=== PATIENT | female | born 1960 | race Caucasian/White ===

== ENCOUNTER 2018-02-15 07:07 | Day surgery (SDC) | payer OTHER ==
--- NOTE | 2018-02-01 15:47 | EKG ---
Test Date: 2018-02-01 Test Time: 15:27:29 [employer] Shift Supervisor: LEIA MEASUREMENT RESULTS: Intervals: Rate: 90 CT: 156 QRSD: 90 QT: 386 QTc: 472 Hooper: P: 69 CT: 156 QRS: 31 T: 64 INTERPRETIVE STATEMENTS: Normal sinus rhythm Normal ECG Compared to ECG 12/25/2016 08:28:05 No significant changes Electronically Signed On 02-01-18 15:46:36 CDT by Be Diane
--- NOTE | 2018-02-01 15:55 | RAD REPORT ---
EXAM DESCRIPTION: RAD - Chest Pa And Lat (2 Views) - 02/01/2018 3:24 pm CLINICAL HISTORY: Preop chest, hernia repair COMPARISON: February 2017 TECHNIQUE: PA and lateral views of the chest were obtained. FINDINGS: The lungs are clear of an acute process. Lung markings are similar to comparison. Heart size is normal and central vasculature is within normal limits. No pleural effusion or pneumothorax seen. Thoracic spine degenerative changes are present. No acute bone process. No aortic abnormality. Lap band device seen in the medial left upper quadrant. IMPRESSION: Chronic interstitial lung disease is present similar to the comparison. No acute cardiopulmonary process.
[2018-02-01 17:05] LABS: Absolute Lymphocytes (CBC) 2.6 K/uL (0.7-4.9); Absolute Monocytes 0.6 K/uL (0.1-1.3); Absolute Neutrophil 4.7 K/uL (1.8-8.0); Hematocrit 35.4 % (36.0-45.0); MCV 79.1 fL (80-100); MPV 7.6 fL (7.6-11.3); RBC Red Blood Cell Count 4.48 M/uL (3.86-4.86)
[2018-02-01 17:32] LABS: Potassium 4.2 mEq/L (3.6-5.0)
--- OUTSIDE RECORDS SUMMARY | 2018-02-15 07:09 | XMS REPORT | Clinical Summary ---
:1960 Author Organization [facility] Address [address] [place] [address] Phone Care Team Providers Name Role Phone Unavailable Primary Care Provider Unavailable Allergies No Known Allergies Current Medications Prescription Sig. Disp. Refills Start Date End Date Status citalopram (CELEXA) 40 MG Take 40 mg by mouth Active tablet daily. ibuprofen (ADVIL,MOTRIN) Take 800 mg by Active 800 MG tablet mouth every 6 (six) hours as needed for Pain. omeprazole (PRILOSEC) 40 Take 40 mg by mouth Active MG capsule daily. Active Problems Not on file Social History Tobacco Use Types Packs/Day Years Used Date Current Every Day Smoker 1 3 Smokeless Tobacco: Never Used Tobacco Cessation: Ready to Quit: No; Counseling Given: Yes Alcohol Use Drinks/Week oz/Week Comments Yes occasional Sex Assigned at Date Recorded Not on file Last Filed Vital Signs Not on file Plan of Treatment Not on file Results Not on fileafter 02/14/2017
[2018-02-15] MEDS ORDERED: CEFAZOLIN/SWI 1gm 1 GM/10 ML SYR ONE (08:01)
[2018-02-15] MEDS ORDERED: Ringers Lactate 1,000 ML IV ONE (08:01)
[2018-02-15] MEDS ORDERED: PROPOFOL 200 MG/20 ML VIAL IV ONE (08:02)
[2018-02-15] MEDS ORDERED: MIDAZOLAM HCL 2 MG/2 ML INJ ONE (08:03)
[2018-02-15] MEDS ORDERED: GLYCOPYRROLATE 0.2 MG/ML SYR ONE (08:03)
[2018-02-15] MEDS ORDERED: ROCURONIUM 50 MG/5 ML VIAL IV ONE (08:04)
[2018-02-15] MEDS ORDERED: FENTANYL CITR 100 MCG/2 ML ONE (08:05)
[2018-02-15] MEDS ORDERED: NEOSTIGMINE 1 MG/ML -5 ML SYRINGE ONE (08:06)
[2018-02-15] MEDS ORDERED: ONDANSETRON HCL 40 MG/20 ML VIAL ONE (08:06)
[2018-02-15] MEDS ORDERED: PROMETHAZINE 25 MG/ML VIAL ONE (09:24)
[2018-02-15] MEDS: MEPERIDINE HCL 25 MG/0.5 ML ONE ×2 (09:25→09:30)
--- NOTE | 2018-02-15 09:40 | P.BOP ---
Preoperative diagnosis: tender incarcerated left inguinal hernia Postoperative diagnosis: same Primary procedure: Open repair of tender incarcerated left inguinal hernia with mesh Estimated blood loss: <5cc Findings: incarcerated left inguinal hernia Anesthesia: General Complications: None Implants: medium mesh plug and sheet Transferred to: Recovery Room Condition: Good
[2018-02-15] MEDS ORDERED: CODEINE 30MG/APAP 300MG TAB ONE (11:19)
--- NOTE | 2018-02-15 22:36 | OP ---
Date of Procedure: 02/15/2018 Surgeon: Rashaun Leos MD Preoperative Diagnosis: Tender incarcerated left inguinal hernia. Postoperative Diagnosis: Tender incarcerated left inguinal hernia. Procedures: Open repair of a tender incarcerated left inguinal hernia with mesh. Finding: Incarcerated left inguinal hernia. Anesthesia: General plus local. Implant: Medium mesh plug and sheath. Indications: This is the case of a 57-year-old patient, comes to us with above diagnosis. Fully exp lained the benefits, alternatives, and risks of repair of hernia with mesh which include, but not pizarro ited to infection, bleeding, damage to adjacent structures as complication, recurrence, chronic pain, chronic numbness, OK, and even . She also understands this may not relieve any symptoms. She might need more than one surgical intervention. She understood. Signed a consent. Description Of Procedure: The patient was brought to the operating room and placed in supine positio n. Anesthesia was done without complication. Abdominal area was prepped and draped in a sterile fas hion. Also the inguinal region. An incision was made over the left inguinal region. Incision was c arried down to Day's fascia until found the external oblique aponeurosis that was open in the dire ction of the fibers to connect to the superficial inguinal ring. The ilioinguinal nerve and iliohypo gastric nerve were identified. We protected and examined the external oblique aponeurosis. We notic ed the patient to have a direct hernia present. So, we proceeded to carefully dissect the hernia sac . We proceeded then to be implicated the hernia sac. I put a mesh plug in that area secured in plac e with VersaTack. The mesh sheath on top securing that to the pubic tubercle, shelving edge of ingui nal ligament, transversalis fascia. No bleeding. At that moment, I proceeded to the ingu inal nerve epigastric nerve back into the inguinal canal. Closed the external oblique apo neurosis with 2-0 Prolene making sure the nerves were not included. We then closed Day fascia wit h 3-0 chromic and skin with augusta. Sponge count and instrument counts were correct. The patient t olerated the procedure well. The patient was sent to recovery in stable condition. SUMMARY Diagnosis: Incarcerated left inguinal hernia. Procedures: Open repair of an incarcerated left inguinal hernia with mesh. Disposition: Home. Activity: As tolerated. No heavy lifting. Followup: Follow up in my office in 1 week. Call for appointment at [phone]. Instructions: Keep area dry for 48 hours, then may shower. Medications: See order. DOMENIC/JOVITA Voice ID: [id number] Report ID: [id number]
== END 2018-02-15 12:15 | disposition home or self-care (01) ==
LOC: OR 07:07
PROVIDERS: ATTEND Surgery
PROC: 0YU60JZ Supplement Left Inguinal Region with Synthetic Substitute, Open Approach (ICD-10-PCS; principal; 2018-02-15 08:30)
DX: K40.30 Unilateral inguinal hernia, with obstruction, without gangrene, not specified as recurrent (principal); Z91.040 Latex allergy status; Z91.048 Other nonmedicinal substance allergy status
CPT/HCPCS: 36415; 49507; 71046; 80048; 85025; 93005; J0690; J2175; J2250; J2405; J2550; J2710; J3010

== ENCOUNTER 2018-07-27 13:28 | Emergency (ER) | payer OTHER ==
--- OUTSIDE RECORDS SUMMARY | 2018-07-27 13:34 | XMS REPORT | Clinical Summary ---
:1960 Author Organization [facility] Address [address] [place] [address] Care Team Providers Name Role Phone Zaheer Frye MD Primary Care Provider Allergies No Known Allergies Medications Medication Sig Dispensed Refills Start Date End Date Status citalopram Take 40 mg by 0 07/27/2018 Discontinued (CELEXA) 40 MG mouth daily. tablet ibuprofen Take 800 mg by 0 07/27/2018 Discontinued (ADVIL,MOTRIN) 800 mouth every 6 MG tablet (six) hours as needed for Pain. omeprazole Take 40 mg by 0 07/27/2018 Discontinued (PRILOSEC) 40 MG mouth daily. capsule Active Problems Not on file Social History Tobacco Use Types Packs/Day Years Used Date Current Every Day Smoker 1 3 Smokeless Tobacco: Never Used Tobacco Cessation: Ready to Quit: No; Counseling Given: Yes Alcohol Use Drinks/Week oz/Week Comments Yes occasional Sex Assigned at Date Recorded Not on file Job Start Date Occupation Industry Not on file Not on file Not on file Travel History Travel Start Travel End No recent travel history available. Last Filed Vital Signs Not on file Plan of Treatment Not on file Results Not on fileafter 07/26/2017 Insurance Payer Benefit Plan / Group Subscriber ID Type Phone Address HU[employer]NA - MEDICARE MGD HU[employer] MEDICARE ADV xxxxxxxxx Maps Contracted CARE
[2018-07-27] MEDS ORDERED: LEVALBUTEROL 1.25 MG/3 ML NEB ONE (14:47)
[2018-07-27] MEDS ORDERED: METHYLPREDNISOLONE 125 MG INJ ONE (14:47)
[2018-07-27] MEDS ORDERED: IPRATROPIUM BROM 0.5MG/2.5ML ONE (14:47)
--- NOTE | 2018-07-27 15:58 | RAD REPORT ---
EXAM DESCRIPTION: RAD - Chest Pa And Lat (2 Views) - 07/27/2018 3:25 pm CLINICAL HISTORY: Cough and congestion, fever, shortness of breath COMPARISON: January 2018 TECHNIQUE: PA and lateral views of the chest were obtained. FINDINGS: The lungs are fibrotic as a baseline. The interstitial pattern increased fractionally in t he mid and lower left lung field. Interstitial pattern is otherwise stable. . Left costophrenic angl e blunting is present new from the prior study. Heart size is normal and central vasculature is withi n normal limits. No pneumothorax. No right-sided pleural effusion. No mediastinal or hilar mass or l ymphadenopathy suspected. No acute bony finding noted. No aortic abnormality. IMPRESSION: Small left pleural effusion with minimal interstitial infiltrate superimposed on fibrosi s lower left lung field.
--- NOTE | 2018-07-27 16:19 | ER ---
Nurse's Notes [facility] Name: Georgina Mcneil Age: 58 yrs Sex: Female : 1960 Arrival Date: 07/27/2018 Time: 13:33 Bed 28 Private MD: Bora Robles Diagnosis: Idiopathic interstitial pneumonia;Chronic obstructive pulmonary disease, unspecified Presentation: 07/27 14:02 Presenting complaint: Patient states: fever, Tmax 101.8, congestion, clear productive sv cough, SOB x 3 weeks. OTC meds taken with no relief. Transition of care: patient was not received from another setting of care. Onset of symptoms was July 06, 2018. Care prior to arrival: None. 14:02 Method Of Arrival: Ambulatory sv 14:02 Acuity: ROSI 3 sv 15:31 Risk Assessment: Do you want to hurt yourself or someone else? Patient reports no mg2 desire to harm self or others. Initial Sepsis Screen: Does the patient meet any 2 criteria? No. Patient's initial sepsis screen is negative. Does the patient have a suspected source of infection? No. Patient's initial sepsis screen is negative. Historical: - Allergies: 14:03 Pnemonia vaccine; sv - Home Meds: 15:32 Celexa 40 mg Oral tab 1 tab once daily [Active]; Ibuprofen Oral [Active]; multivitamin mg2 Oral [Active]; Xanax Oral [Active]; - PMHx: 14:03 Anxiety; Degenerative disc disease; Depression; GERD; Hyperlipidemia; Hypothyroidism; sv - PSHx: 14:03 Lap band - 2007; R arm sx; Tubal ligation; Carpal Tunnel Repair; sv - Immunization history:: Flu vaccine is not up to date. - Social history:: Smoking status: Patient/guardian denies using tobacco. - Ebola Screening: : No symptoms or risks identified at this time. - Family history:: not pertinent. - Hospitalizations: : No recent hospitalization is reported. Screenin:03 Abuse screen: Denies threats or abuse. Denies injuries from another. Nutritional iw screening: No deficits noted. Tuberculosis screening: No symptoms or risk factors identified. Fall Risk None identified. Assessment: 15:02 General: Appears uncomfortable, Behavior is calm, cooperative. General: Reports fever iw for feeling ill for. Pain: Complains of pain in head. Neuro: Level of Consciousness is awake, alert, obeys commands, Oriented to person, place, time, situation, Moves all extremities. Full function. Cardiovascular: Capillary refill < 3 seconds in bilateral fingers Patient's skin is warm and dry. Respiratory: Airway is patent Breath sounds with wheezes in left lower lobe, right lower lobe, left posterior lower lobe and right posterior middle lobe. Respiratory: Reports shortness of breath cough that is. Derm: Skin is healthy with good turgor. Musculoskeletal: Range of motion: intact in all extremities. Vital Signs: 14:04 BP 151 / 96; Pulse 84; Resp 20; Temp 100.4(O); Pulse Ox 98% ; Weight 69.85 kg; Height 5 sv ft. 4 in. (162.56 cm); 16:35 BP 150 / 90; Pulse 88; Resp 18; Temp 99.6(O); Pulse Ox 100% on R/A; Pain 0/10; mg2 14:04 Body Mass Index 26.43 (69.85 kg, 162.56 cm) sv ED Course: 13:33 Patient arrived in ED. mr 13:33 Bora Robles MD is Private Physician. mr 14:03 Triage completed. sv 14:05 Arm band placed on. sv 14:18 Derik Ang MD is Attending Physician. rn 14:50 Inserted saline lock: 22 gauge in left antecubital area, using aseptic technique. iw 15:03 Patient has correct armband on for positive identification. iw 15:17 X-ray completed. Patient tolerated procedure well. Patient moved back from radiology. ml 15:19 XRAY Chest Pa And Lat (2 Views) In Process Unspecified. EDMS 15:30 No provider procedures requiring assistance completed. mg2 15:32 Yaakov Elizabeth, TERRIE is Primary Nurse. mg2 16:18 Bora Robles MD is Referral Physician. rn 16:35 IV discontinued, intact, bleeding controlled, No redness/swelling at site. Pressure mg2 dressing applied. Administered Medications: 14:46 Drug: SOLU-Medrol 125 mg Route: IVP; Site: left antecubital; iw 16:21 Follow up: Response: No adverse reaction; Marked relief of symptoms mg2 14:46 Drug: Xopenex (3) 1.25 mg Route: Inhalation; iw 16:22 Follow up: Response: No adverse reaction; Marked relief of symptoms mg2 14:46 Drug: AtroVENT Aerosol 0.5 mg Route: Inhalation; iw 16:22 Follow up: Response: No adverse reaction; Marked relief of symptoms mg2 Outcome: 16:18 Discharge ordered by . rn 16:36 Discharged to home ambulatory, with family. mg2 16:36 Condition: stable 16:36 Discharge instructions given to patient, family, Instructed on discharge instructions, follow up and referral plans. medication usage, Demonstrated understanding of instructions, follow-up care, medications, Prescriptions given X 4. 16:36 Patient left the ED. mg2 Signatures: Dispatcher [employer] Natasha Lou RN RN sv Rivera, Shae mr Demario, Destiny RN TERRIE iw Brian, Derik Dominguez MD MD rn Gardose, Michele, RN RN mg2 Corrections: (The following items were deleted from the chart) 14:04 14:02 Presenting complaint: Patient states: fever, Tmax 101.8, congestion, SOB x 3 sv weeks. OTC meds taken with no relief. sv
--- NOTE | 2018-07-27 16:19 | EDPHYS ---
Physician Documentation [facility] Name: Georgina Mcneil Age: 58 yrs Sex: Female : 1960 Arrival Date: 07/27/2018 Time: 13:33 Bed 28 Private MD: Bora Robles ED Physician Derik Ang HPI: 07/27 15:02 This 58 yrs old Female presents to ER via Ambulatory with complaints of rn Fever, Congestion. 15:02 The patient reports fever, not measured (subjective). Onset: The symptoms/episode rn began/occurred 3 day(s) ago. Modifying factors: there are no obvious modifying factors. Associated signs and symptoms: Pertinent positives: cough. Severity of symptoms: At their worst the symptoms were moderate in the emergency department the symptoms are unchanged. The patient has experienced similar episodes in the past. The patient has not recently seen a physician. Reports fever, congestion, cough, present for 3 weeks but worse over last 3 days, told in past has COPD but she states is seasonal allergies. . Historical: - Allergies: 14:03 Pnemonia vaccine; sv - Home Meds: 15:32 Celexa 40 mg Oral tab 1 tab once daily [Active]; Ibuprofen Oral [Active]; multivitamin mg2 Oral [Active]; Xanax Oral [Active]; - PMHx: 14:03 Anxiety; Degenerative disc disease; Depression; GERD; Hyperlipidemia; Hypothyroidism; sv - PSHx: 14:03 Lap band - 2006; R arm sx; Tubal ligation; Carpal Tunnel Repair; sv - Immunization history:: Flu vaccine is not up to date. - Social history:: Smoking status: Patient/guardian denies using tobacco. - Ebola Screening: : No symptoms or risks identified at this time. - Family history:: not pertinent. - Hospitalizations: : No recent hospitalization is reported. ROS: 15:02 Constitutional: + fever Eyes: Negative for injury, pain, redness, and discharge, pattern fitter: Negative for chest pain, palpitations, and edema, Respiratory: + cough and sob Abdomen/GI: Negative for abdominal pain, nausea, vomiting, diarrhea, and constipation, MS/Extremity: Negative for injury and deformity, Skin: Negative for injury, rash, and discoloration, Neuro: Negative for headache, weakness, numbness, tingling, and seizure. Exam: 15:02 Constitutional: This is a well developed, well nourished patient who is awake, alert, rn and in no acute distress. Head/Face: Normocephalic, atraumatic. Eyes: Pupils equal round and reactive to light, extra-ocular motions intact. Lids and lashes normal. Conjunctiva and sclera are non-icteric and not injected. Cornea within normal limits. Periorbital areas with no swelling, redness, or edema. Cardiovascular: Regular rate and rhythm with a normal S1 and S2. No gallops, murmurs, or rubs. Normal PMI, no JVD. No pulse deficits. Respiratory: + mild tachypnea, no retractions, + diffuse bilateral wheezing, speaking full sentences Abdomen/GI: Soft, non-tender, with normal bowel sounds. No distension or tympany. No guarding or rebound. No evidence of tenderness throughout. Skin: Warm, dry MS/ Extremity: Pulses equal, no cyanosis. Neurovascular intact. Full, normal range of motion. Equal circumference. Neuro: Awake and alert, GCS 15, oriented to person, place, time, and situation. Cranial nerves II-XII grossly intact. Motor strength 5/5 in all extremities. Sensory grossly intact. Cerebellar exam normal. Normal gait. Vital Signs: 14:04 BP 151 / 96; Pulse 84; Resp 20; Temp 100.4(O); Pulse Ox 98% ; Weight 69.85 kg; Height 5 sv ft. 4 in. (162.56 cm); 16:35 BP 150 / 90; Pulse 88; Resp 18; Temp 99.6(O); Pulse Ox 100% on R/A; Pain 0/10; mg2 14:04 Body Mass Index 26.43 (69.85 kg, 162.56 cm) sv MDM: 14:18 Patient medically screened. rn 16:17 Differential diagnosis: viral Infection, bacterial infection, URI, bronchitis, rn pneumonia. Data reviewed: vital signs, nurses notes, lab test result(s), radiologic studies, plain films, and as a result, I will discharge patient. Counseling: I had a detailed discussion with the patient and/or guardian regarding: the historical points, exam findings, and any diagnostic results supporting the discharge/admit diagnosis, lab results, radiology results, the need for outpatient follow up, to return to the emergency department if symptoms worsen or persist or if there are any questions or concerns that arise at home. Response to treatment: the patient's symptoms have markedly improved after treatment, and as a result, I will discharge patient. Special discussion: I discussed with the patient/guardian in detail that at this point there is no indication for admission to the hospital. It is understood, however, that if the symptoms persist or worsen the patient needs to return immediately for re-evaluation. 07/27 14:27 Order name: Flu; Complete Time: 15:53 rn 07/27 14:27 Order name: Strep; Complete Time: 15:53 rn 07/27 14:27 Order name: XRAY Chest Pa And Lat (2 Views); Complete Time: 16:13 rn 07/27 15:49 Order name: Throat Culture EDMS 07/27 14:27 Order name: IV Start; Complete Time: 14:37 rn Administered Medications: 14:46 Drug: SOLU-Medrol 125 mg Route: IVP; Site: left antecubital; iw 16:21 Follow up: Response: No adverse reaction; Marked relief of symptoms mg2 14:46 Drug: Xopenex (3) 1.25 mg Route: Inhalation; iw 16:22 Follow up: Response: No adverse reaction; Marked relief of symptoms mg2 14:46 Drug: AtroVENT Aerosol 0.5 mg Route: Inhalation; iw 16:22 Follow up: Response: No adverse reaction; Marked relief of symptoms mg2 Disposition: 07/27/18 16:18 Discharged to Home. Impression: Idiopathic interstitial pneumonia, Chronic obstructive pulmonary disease, unspecified. - Condition is Stable. - Discharge Instructions: Community-Acquired Pneumonia, Adult, Chronic Obstructive Pulmonary Disease Exacerbation. - Prescriptions for Augmentin 875- 125 mg Oral Tablet - take 1 tablet by ORAL route every 12 hours for 10 days; 20 tablet. Prednisone 20 mg Oral Tablet - take 3 tablet by ORAL route once daily for 5 days; 15 tablet. Zithromax Z- Glen 250 mg Oral Tablet - take 1 tablet by ORAL route as directed for 5 days Day 1 - take two (2) tablets one time. Day 2, 3, 4 , 5 take one (1) tablet once daily.; 6 tablet. Albuterol Sulfate 90 mcg/actuation - inhale 1-2 puff by INHALATION route every 4-6 hours; 1 Inhaler. - Medication Reconciliation Form, Thank You Letter, Antibiotic Education, Prescription Opioid Use form. - Follow up: Bora Robles MD; When: As needed; Reason: Recheck today's complaints, Re-evaluation by your physician. - Problem is new. - Symptoms have improved. Signatures: Dispatcher [employer] EDNatasha Haider RN RN Destiny Solares RN RN iw Nieto, Roman, MD MD rn Gardose, Michele, RN RN mg2 Corrections: (The following items were deleted from the chart) 16:36 16:18 07/27/2018 16:18 Discharged to Home. Impression: Idiopathic interstitial mg2 pneumonia; Chronic obstructive pulmonary disease, unspecified. Condition is Stable. Forms are Medication Reconciliation Form, Thank You Letter, Antibiotic Education, Prescription Opioid Use. Follow up: Bora Robles; When: As needed; Reason: Recheck today's complaints, Re-evaluation by your physician. Problem is new. Symptoms have improved. rn
== END 2018-07-27 16:36 | disposition home or self-care (01) ==
LOC: ER 13:28
DX: J84.111 Idiopathic interstitial pneumonia, not otherwise specified (principal); J44.9 Chronic obstructive pulmonary disease, unspecified
CPT/HCPCS: 71046; 87070; 87081; 87804 ×2; 96374; 99284; J2930

== ENCOUNTER 2019-03-15 10:57 | Observation (INO) | payer OTHER ==
--- OUTSIDE RECORDS SUMMARY | 2019-03-15 11:00 | XMS REPORT | Clinical Summary ---
:1960 Author Organization [facility] Address [address] [place] [address] Care Team Providers Name Role Phone Zaheer [...] Not on file Results Not on fileafter 03/14/2018 Insurance Payer Benefit Plan / Group Subscriber ID Type Phone Address [employer] - MEDICARE MGD [employer] MEDICARE ADV xxxxxxxxx Maps Contracted CARE
[2019-03-15] MEDS ORDERED: ALBUTEROL 2.5 MG/3 ML NEB SOL ONE ×2 (11:23→16:07)
[2019-03-15] MEDS ORDERED: METHYLPREDNISOLONE 125 MG INJ ONE (11:23)
[2019-03-15] MEDS ORDERED: IPRATROPIUM BROM 0.5MG/2.5ML ONE ×2 (11:23→16:07)
--- NOTE | 2019-03-15 11:31 | RAD REPORT ---
EXAM DESCRIPTION: RAD - Chest Single View - 03/15/2019 11:25 am CLINICAL HISTORY: DYSPNEA Chest pain. COMPARISON: Chest Pa And Lat (2 Views) dated 07/27/2018; Chest Pa And Lat (2 Views) dated 02/01/2018; C hest Pa And Lat (2 Views) dated 03/01/2017; Chest Pa And Lat (2 Views) dated 01/26/2017 FINDINGS: Portable technique limits examination quality. The lungs are grossly clear. The heart is normal in size. Trace left pleural effusion. IMPRESSION: Trace left pleural fluid.
[2019-03-15 11:33] LABS: Absolute Lymphocytes (CBC) 3.6 K/uL (0.7-4.9); Basophils % 0.9 % (0-1.3); Eosinophils % 3.9 % (0-4.4); Lymphocytes % 28.3 % (15.3-44.8); Monocytes % 6.2 % (3.3-12.3); RBC Red Blood Cell Count 5.88 M/uL (3.86-4.86)
[2019-03-15 11:41] LABS: Protime INR 1.02
[2019-03-15 11:54] LABS: ALT/SGPT 15 U/L (12-78); AST/SGOT 10 U/L (15-37); Albumin 3.7 g/dL (3.4-5.0); Alkaline Phosphatase 139 U/L (45-117); BUN Blood Urea Nitrogen 20 mg/dL (7-18); Bicarbonate 23 mmol/L (21-32); Bilirubin Direct 0.1 mg/dL (0-0.2); Bilirubin Total 0.5 mg/dL (0.2-1.0); Glucose Level 91 mg/dL (74-106); Magnesium 2.2 mg/dL (1.8-2.4); NT PRO-BNP 60 pg/mL (<125); Potassium 4.1 mmol/L (3.5-5.1); Protein, Total 8.7 g/dL (6.4-8.2); Sodium Level 140 mmol/L (136-145); Troponin (Emerg Dept Use Only) < 0.02 ng/mL (0.0-0.045)
[2019-03-15] MEDS ORDERED: PIPER/TAZO/NS 3.375gm 3.375 GM/100 ML BAG ONE (12:31)
[2019-03-15] MEDS ORDERED: NA CHLORIDE 0.9% 2,000 ML ONE (12:31)
[2019-03-15 12:42] LABS: Platelet Estimate INCR; Urine White Blood Cell Casts OK
[2019-03-15 12:43] LABS: Anisocytosis 2+; Blood Morphology Comment NOTED (NOT SEEN); Elliptocytes 1+; Hypochromasia 1+; Poikilocytosis 1+
[2019-03-15] MEDS ORDERED: NA CHLORIDE 0.9% 500 ML ONE (12:58)
--- NOTE | 2019-03-15 13:00 | ER ---
Nurse's Notes [facility] Name: Georgina Mcneil Age: 58 yrs Sex: Female : 1960 Arrival Date: 03/15/2019 Time: 10:58 Bed 20 Private MD: Diagnosis: Acute bronchitis;Asthma;Dehydration Presentation: 03/15 11:11 Presenting complaint: Patient states: Shortness of breath for the past 3 days, with a aj1 productive cough. She has been taking a Z-Pack, which she has now finished with no relief. Transition of care: patient was not received from another setting of care. Onset of symptoms was 2018. Risk Assessment: Do you want to hurt yourself or someone else? Patient reports no desire to harm self or others. Initial Sepsis Screen: Does the patient meet any 2 criteria? RR > 20 per min. HR > 90 bpm. Yes Does the patient have a suspected source of infection? Yes: Productive cough/pneumonia If YES to both, name of provider notified: Fernando HARPER. Care prior to arrival: None. 11:11 Method Of Arrival: Wheelchair aj1 11:11 Acuity: ROSI 3 aj1 Triage Assessment: 11:16 General: Appears uncomfortable, Behavior is cooperative, anxious, restless. Neuro: aj1 Level of Consciousness is awake, alert, obeys commands. Respiratory: Reports shortness of breath at rest cough that is productive, Airway is patent Respiratory effort is even, Respiratory pattern is regular, symmetrical, tachypnea Onset: The symptoms/episode began/occurred 3 days ago, the patient has moderate shortness of breath. Historical: - Allergies: 11:16 Pnemonia vaccine; aj1 11:16 Latex, Natural Rubber; aj1 - Home Meds: 11:16 Celexa 40 mg Oral tab 1 tab once daily [Active]; Wellbutrin Oral [Active]; amlodipine aj1 oral [Active]; Prilosec Oral [Active]; Tramadol Oral [Active]; ropinirole oral oral [Active]; Albuterol Nebulizer [Active]; Xanax Oral [Active]; - PMHx: 11:16 Anxiety; Degenerative disc disease; Arthritis; Depression; GERD; Hyperlipidemia; aj1 Hypothyroidism; hiatal hernia; - PSHx: 11:16 carpal tunnel; lap band; Tonsillectomy; Tubal ligation; aj1 - Immunization history:: Flu vaccine is up to date. - Social history:: Smoking status: Patient/guardian denies using tobacco. - Ebola Screening: : Patient denies travel to an Ebola-affected area in the 21 days before illness onset. Screenin:47 Abuse screen: Denies threats or abuse. Denies injuries from another. Nutritional ph screening: No deficits noted. Tuberculosis screening: No symptoms or risk factors identified. Fall Risk None identified. Assessment: 11:15 General: Appears distressed, uncomfortable, well groomed, Behavior is cooperative, ph anxious. Pain: Denies pain. Neuro: Level of Consciousness is awake, alert, obeys commands, Oriented to person, place, time, situation, Reports dizziness. Cardiovascular: Reports lightheadedness, shortness of breath, vomiting, Denies chest pain, nausea, palpitations, Capillary refill is sluggish in bilateral fingers Patient's skin is warm and dry. Rhythm is sinus rhythm. Respiratory: Reports shortness of breath at rest cough that is labored breathing Airway is patent Respiratory effort is labored, with retractions, Respiratory pattern is tachypnea Breath sounds with wheezes in mediastinum, right upper lobe and left upper lobe. GI: Reports vomiting, after coughing spells Patient currently denies abdominal pain, nausea. Derm: Skin is intact, Skin is pink, warm \T\ dry. Musculoskeletal: Circulation, motion, and sensation intact. Range of motion: intact in all extremities. 12:15 Reassessment: Patient appears in no apparent distress at this time. Patient and/or ph family updated on plan of care and expected duration. Pain level reassessed. Patient is alert, oriented x 3, equal unlabored respirations, skin warm/dry/pink. Pt reports that SOB has improved, respirations remain tachypneic but wheezing has decreased, denies pain or nausea, VSS, will continue to monitor. 13:30 Reassessment: Patient appears in no apparent distress at this time. Patient and/or ph family updated on plan of care and expected duration. Pain level reassessed. Pt resting quietly w/ eyes closed, equal unlabored respirations, VSS at this tie, will continue to monitor, awaiting room assignment. 14:30 Reassessment: Patient appears in no apparent distress at this time. No changes from ph previously documented assessment. Patient and/or family updated on plan of care and expected duration. Pain level reassessed. 15:30 Reassessment: Patient appears in no apparent distress at this time. Patient and/or ph family updated on plan of care and expected duration. Pain level reassessed. Patient is alert, oriented x 3, equal unlabored respirations, skin warm/dry/pink. Report called to Jazzy FALCON. 15:45 Reassessment: Patient appears in no apparent distress at this time. Patient and/or ph family updated on plan of care and expected duration. Pain level reassessed. Patient is alert, oriented x 3, equal unlabored respirations, skin warm/dry/pink. Pt reports that SOB has returned, respirations noted to be tachypneic and slight wheezes auscultated, SpO2 100% RA, ERP notified, neb tx ordered. Vital Signs: 11:16 BP 155 / 98; Pulse 98; Resp 24; Temp 97.8(O); Pulse Ox 100% on R/A; aj1 11:50 BP 113 / 61; Pulse 87; Resp 22; Pulse Ox 100% on R/A; Pain 0/10; ph 12:13 Weight 83.91 kg; ph 12:30 BP 101 / 50; Pulse 80; Resp 22; Pulse Ox 100% on R/A; ph 13:30 BP 145 / 84; Pulse 88; Resp 20; Temp 97.4; Pulse Ox 99% on R/A; ph 14:30 BP 122 / 78; Pulse 81; Resp 20; Pulse Ox 100% on R/A; ph 15:30 BP 118 / 76; Pulse 82; Resp 22; Temp 97.9; Pulse Ox 100% on R/A; ph ED Course: 10:58 Patient arrived in ED. as 11:00 Fernando Alcantara PA is PHCP. jr8 11:00 Luis Alves MD is Attending Physician. jr8 11:00 Alyssa Fernandes, TERRIE is Primary Nurse. ph 11:12 Triage completed. aj1 11:15 Inserted saline lock: 20 gauge in right antecubital area, using aseptic technique. ph Blood collected. 11:16 Arm band placed on Patient Patient triaged in ER bed 20. aj1 11:25 XRAY Chest (1 view) In Process Unspecified. EDMS 11:30 Initial lab(s) drawn, by me, sent to lab. First set of blood cultures drawn by me, ph Second set of blood cultures drawn by me. 11:38 EKG done, by battery technician. reviewed by Fernando HARPER. sm3 12:59 Carlene Abreu MD is Hospitalizing Provider. jr8 13:46 Patient has correct armband on for positive identification. Placed in gown. Bed in low ph position. Call light in reach. Side rails up X2. phototypesetting equipment monitor on. Pulse ox on. NIBP on. Door closed. Noise minimized. Lights dimmed. Warm blanket given. Pillow given. Verbal reassurance given. Head of bed lowered. 13:47 No provider procedures requiring assistance completed. Patient admitted, IV remains in ph place. Administered Medications: 11:16 Drug: SOLU-Medrol 125 mg Route: IVP; Site: right antecubital; ph 13:37 Follow up: Response: No adverse reaction ph 11:34 Drug: Albuterol - atroVENT (3:1) (2.5 mg - 0.5 mg) 3 ml Route: Nebulizer; ph 13:37 Follow up: Response: No adverse reaction; Wheezing diminished ph 12:25 Drug: NS 0.9% (30 ml/kg) 30 ml/kg {Note: 2,500 mL bolus adminsistered.} Route: IV; ph Rate: bolus; Site: right antecubital; 13:36 Follow up: Response: No adverse reaction; IV Status: Completed infusion; IV Intake: ph 2500ml 12:25 Drug: Zosyn 3.375 grams Route: IVPB; Infused Over: 60 mins; Site: left antecubital; ph 13:36 Follow up: Response: No adverse reaction; IV Status: Completed infusion; IV Intake: ph 100ml 15:55 Drug: Albuterol - atroVENT (3:1) (2.5 mg - 0.5 mg) 3 ml Route: Nebulizer; ph 16:00 Follow up: Response: No adverse reaction ph Intake: 13:36 IV: 100ml; Total: 100ml. ph 13:36 IV: 2500ml; Total: 2600ml. ph Outcome: 12:59 Decision to Hospitalize by Provider. jr8 16:00 Patient left the ED. ph 16:00 Admitted to Tele accompanied by tech, via wheelchair, with oxygen, with chart, Other Pt ph went up w/ neb tx Report called to Jazzy FALCON 16:00 Condition: stable Signatures: Dispatcher [employer] Maria A Koo RN RN aj1 Nely Leos Josh, PA PA jr8 Alyssa Fernandes RN RN ph Justyna Smith 3 Corrections: (The following items were deleted from the chart) 12:28 12:25 NS 0.9% (30 ml/kg) 30 ml/kg IV at bolus in right antecubital ph ph
--- NOTE | 2019-03-15 13:00 | EDPHYS ---
Physician Documentation [facility] Name: Georgina Mcneil Age: 58 yrs Sex: Female : 1960 Arrival Date: 03/15/2019 Time: 10:58 Bed 20 Private MD: ED Physician Luis Alves HPI: 03/15 11:49 This 58 yrs old Female presents to ER via Wheelchair with complaints of jr8 Shortness Of Breath. 11:49 The patient has shortness of breath at rest. Onset: The symptoms/episode began/occurred jr8 gradually, 2 week(s) ago, and became worse and became persistent. Duration: The symptoms are continuous. The patient's shortness of breath is aggravated by talking, walking. Associated signs and symptoms: Pertinent positives: non-productive cough. Severity of symptoms: At their worst the symptoms were moderate in the emergency department the symptoms are unchanged. It is unknown whether or not the patient has had similar symptoms in the past. The patient has been recently seen by a physician:. Patient stated that she was antibiotics about 2 and a half weeks ago for acute respiratory infection. History of asthma and has been having to utilize her inhalers for the past couple of weeks. Now having increased wheezing and dyspnea . Historical: - Allergies: 11:16 Pnemonia vaccine; aj1 11:16 Latex, Natural Rubber; aj1 - Home Meds: 11:16 Celexa 40 mg Oral tab 1 tab once daily [Active]; Wellbutrin Oral [Active]; amlodipine aj1 oral [Active]; Prilosec Oral [Active]; Tramadol Oral [Active]; ropinirole oral oral [Active]; Albuterol Nebulizer [Active]; Xanax Oral [Active]; - PMHx: 11:16 Anxiety; Degenerative disc disease; Arthritis; Depression; GERD; Hyperlipidemia; aj1 Hypothyroidism; hiatal hernia; - PSHx: 11:16 carpal tunnel; lap band; Tonsillectomy; Tubal ligation; aj1 - Immunization history:: Flu vaccine is up to date. - Social history:: Smoking status: Patient/guardian denies using tobacco. - Ebola Screening: : Patient denies travel to an Ebola-affected area in the 21 days before illness onset. ROS: 11:49 Eyes: Negative for injury, pain, redness, and discharge, ENT: Negative for injury, jr8 pain, and discharge, Neck: Negative for injury, pain, and swelling, Cardiovascular: Negative for chest pain, palpitations, and edema, Abdomen/GI: Negative for abdominal pain, nausea, vomiting, diarrhea, and constipation, Back: Negative for injury and pain, MS/Extremity: Negative for injury and deformity, Skin: Negative for injury, rash, and discoloration, Neuro: Negative for headache, weakness, numbness, tingling, and seizure. 11:49 Respiratory: Positive for cough, dyspnea on exertion, shortness of breath, wheezing. Exam: 11:49 Eyes: Pupils equal round and reactive to light, extra-ocular motions intact. Lids and jr8 lashes normal. Conjunctiva and sclera are non-icteric and not injected. Cornea within normal limits. Periorbital areas with no swelling, redness, or edema. ENT: Nares patent. No nasal discharge, no septal abnormalities noted. Tympanic membranes are normal and external auditory canals are clear. Oropharynx with no redness, swelling, or masses, exudates, or evidence of obstruction, uvula midline. Mucous membranes moist. Neck: Trachea midline, no thyromegaly or masses palpated, and no cervical lymphadenopathy. Supple, full range of motion without nuchal rigidity, or vertebral point tenderness. No Meningismus. Cardiovascular: Regular rate and rhythm with a normal S1 and S2. No gallops, murmurs, or rubs. Normal PMI, no JVD. No pulse deficits. Abdomen/GI: Soft, non-tender, with normal bowel sounds. No distension or tympany. No guarding or rebound. No evidence of tenderness throughout. Back: No spinal tenderness. No costovertebral tenderness. Full range of motion. Skin: cool, moist with normal turgor. Normal color with no rashes, no lesions, and no evidence of cellulitis. MS/ Extremity: Pulses equal, no cyanosis. Neurovascular intact. Full, normal range of motion. Neuro: Awake and alert, GCS 15, oriented to person, place, time, and situation. Cranial nerves II-XII grossly intact. Motor strength 5/5 in all extremities. Sensory grossly intact. Cerebellar exam normal. Normal gait. 11:49 Respiratory: mild respiratory distress is noted, Respirations: labored breathing, tachypnea, Breath sounds: wheezing: expiratory that is moderate, is heard diffusely. Vital Signs: 11:16 BP 155 / 98; Pulse 98; Resp 24; Temp 97.8(O); Pulse Ox 100% on R/A; aj1 11:50 BP 113 / 61; Pulse 87; Resp 22; Pulse Ox 100% on R/A; Pain 0/10; ph 12:13 Weight 83.91 kg; ph 12:30 BP 101 / 50; Pulse 80; Resp 22; Pulse Ox 100% on R/A; ph 13:30 BP 145 / 84; Pulse 88; Resp 20; Temp 97.4; Pulse Ox 99% on R/A; ph 14:30 BP 122 / 78; Pulse 81; Resp 20; Pulse Ox 100% on R/A; ph 15:30 BP 118 / 76; Pulse 82; Resp 22; Temp 97.9; Pulse Ox 100% on R/A; ph MDM: 11:05 Patient medically screened. [facility] 12:14 Differential diagnosis: Anxiety Reaction asthma, Bronchitis CHF exacerbation, Chronic jr8 Obstructive Pulmonary Disease Myocardial Infarction pneumonia, pulmonary edema, Pulmonary Embolism Sepsis. The patient's pulmonary embolism risk score was calculated as follows: No Risks (0 Pts). Data reviewed: vital signs, nurses notes, lab test result(s), EKG, radiologic studies, plain films. Data interpreted: Pulse oximetry: on room air is 100 %. Interpretation: normal. Counseling: I had a detailed discussion with the patient and/or guardian regarding: the historical points, exam findings, and any diagnostic results supporting the discharge/admit diagnosis, lab results, radiology results, the need for further work-up and treatment in the hospital. 12:58 Physician consultation: Carlene Abreu MD was called at 12:58, was contacted at 12:58, jr8 regarding admission, to the telemetry unit. consult, patient's condition, and will see patient. 03/15 11:06 Order name: Basic Metabolic Panel [facility] 03/15 11:06 Order name: CBC with Diff 03/15 11:06 Order name: LFT's [facility] 03/15 11:06 Order name: Magnesium; Complete Time: 11:59 [facility] 03/15 11:06 Order name: NT PRO-BNP; Complete Time: 11:59 [facility] 03/15 11:06 Order name: PT-INR; Complete Time: 11:51 jr8 06/20 11:06 Order name: Troponin (emerg Dept Use Only); Complete Time: 11:59 03/15 11:06 Order name: Blood Culture Adult (2) 03/15 11:07 Order name: Basic Metabolic Panel; Complete Time: 11:59 EDMS 03/15 11:07 Order name: CBC with Automated Diff; Complete Time: 12:50 EDMS 03/15 11:07 Order name: Liver (Hepatic) Function; Complete Time: 11:59 EDMS 03/15 11:18 Order name: Procalcitonin; Complete Time: 12:13 hb 03/15 11:18 Order name: Lactate; Complete Time: 11:59 hb 03/15 11:53 Order name: CBC Smear Scan; Complete Time: 12:50 EDMS 03/15 11:06 Order name: XRAY Chest (1 view); Complete Time: 11:37 03/15 11:06 Order name: EKG; Complete Time: 11:08 [facility] 03/15 11:06 Order name: Cardiac monitoring; Complete Time: 11:28 03/15 11:06 Order name: EKG - Nurse/Tech; Complete Time: 11:28 03/15 11:06 Order name: IV Saline Lock; Complete Time: 11:28 03/15 11:06 Order name: Labs collected and sent; Complete Time: 11:28 03/15 11:06 Order name: O2 Per Protocol; Complete Time: 11:28 03/15 11:06 Order name: O2 Sat Monitoring; Complete Time: :28 Administered Medications: 11:16 Drug: SOLU-Medrol 125 mg Route: IVP; Site: right antecubital; ph 13:37 Follow up: Response: No adverse reaction ph 11:34 Drug: Albuterol - atroVENT (3:1) (2.5 mg - 0.5 mg) 3 ml Route: Nebulizer; ph 13:37 Follow up: Response: No adverse reaction; Wheezing diminished ph 12:25 Drug: NS 0.9% (30 ml/kg) 30 ml/kg {Note: 2,500 mL bolus adminsistered.} Route: IV; ph Rate: bolus; Site: right antecubital; 13:36 Follow up: Response: No adverse reaction; IV Status: Completed infusion; IV Intake: ph 2500ml 12:25 Drug: Zosyn 3.375 grams Route: IVPB; Infused Over: 60 mins; Site: left antecubital; ph 13:36 Follow up: Response: No adverse reaction; IV Status: Completed infusion; IV Intake: ph 100ml 15:55 Drug: Albuterol - atroVENT (3:1) (2.5 mg - 0.5 mg) 3 ml Route: Nebulizer; ph 16:00 Follow up: Response: No adverse reaction ph Disposition: 16:16 Co-signature as Attending Physician, Luis Alves MD I agree with the assessment and kdr plan of care. Disposition: 03/15/19 12:59 Hospitalization ordered by Carlene Abreu for Observation. Preliminary diagnosis are Acute bronchitis, Asthma, Dehydration. - Bed requested for Telemetry/MedSurg (observation). - Status is Observation. ph - Condition is Stable. - Problem is new. - Symptoms have improved. UTI on Admission? No Signatures: Dispatcher [employer] EDMS Maria A Page RN RN ajRenée Daugherty RN RN dw Avelino Blake RN RN sg Rittger, Kevin, MD MD [facility] Fernando Alcantara PA PA jr8 Alyssa Fernandes RN RN ph Corrections: (The following items were deleted from the chart) 12:59 12:14 Counseling: I had a detailed discussion with the patient and/or guardian jr8 regarding: the historical points, exam findings, and any diagnostic results supporting the discharge/admit diagnosis, lab results, radiology results, jr8 14:01 12:59 Hospitalization Ordered by Carlene Abreu MD for Observation. Preliminary dw diagnosis is Acute bronchitis; Asthma; Dehydration. Bed requested for Telemetry/MedSurg (observation). Status is Observation. Condition is Stable. Problem is new. Symptoms have improved. UTI on Admission? No. jr8 16:00 14:01 03/15/2019 12:59 Hospitalization Ordered by Carlene Abreu MD for Observation. ph Preliminary diagnosis is Acute bronchitis; Asthma; Dehydration. Bed requested for Telemetry/MedSurg (observation). Status is Observation. Condition is Stable. Problem is new. Symptoms have improved. UTI on Admission? No. dw
--- NOTE | 2019-03-15 15:10 | P.HP ---
Certification for Inpatient Patient admitted to: Observation With expected LOS: <2 Midnights Patient will require the following post-hospital care: None Practitioner: I am a practitioner with admitting privileges, knowledge of patient current condition, hospital course, and medical plan of care. Services: Services provided to patient in accordance with Admission requirements found in Title 42 Section 412.3 of the Code of Federal Regulations Patient History Date of Service: 03/15/19 Primary Care Provider: Dr Medina Reason for admission: SOB History of Present Illness: 58 y/o F with Pmhx of anxiety and depression presenting to the ER with C/o SOB and cough x 3 days. Progressively getting worse. Cough is non productive. Pt gets really SOB after coughing spells and feels dizzy. Denies having Fever, chills, N/V or any other symptoms. Negative for Smoking or alcohol. No sick Contact. Was seen by PCP and given Zpak but did not have any improvement in the symptoms. Allergies adhesive tape Allergy (Verified 02/15/18 08:31) blisters latex tape Allergy (Uncoded 02/15/18 08:31) blisters Pnemonia vaccine Allergy (Uncoded 02/15/18 08:31) Rash - Past Medical/Surgical History Diabetic: No -: Anxiety -: Depression -: Degenerative Disk Disease -: Hyperrlipidemia -: GERD -: Hypothyroidism -: Lap Band -: R arm sx -: Tubal ligation -: Carpel Tunnel Repair - Family History Family History: Reviewed- Non-Contributory - Family History Mother -: Cancer - Social History Smoking Status: Current every day smoker Counseled patient to stop smoking for: more than 10 minutes Smoking therapy provided: Yes Patient receptive to therapy: Yes Alcohol use: No CD- Drugs: No Caffeine use: No Place of Residence: Home Review of Systems 10-point ROS is otherwise unremarkable Physical Examination - Physical Exam General: Alert, In no apparent distress HEENT: Atraumatic, PERRLA, Mucous membr. moist/pink, EOMI, Sclerae nonicteric Neck: Supple, 2+ carotid pulse no bruit, No LAD, Without JVD or thyroid abnormality Respiratory: Normal air movement, Expiratory wheezes, Inspiratory wheezes Cardiovascular: Regular rate/rhythm, Normal S1 S2 Gastrointestinal: Normal bowel sounds, No tenderness Musculoskeletal: No tenderness Integumentary: No rashes Neurological: Normal gait, Normal speech, Normal strength at 5/5 x4 extr, Normal tone, Normal affect Lymphatics: No axilla or inguinal lymphadenopathy - Studies Laboratory Data (last 24 hrs) 03/15/19 11:15: PT 12.0, INR 1.02 03/15/19 11:15: WBC 12.9 H, Hgb 12.5, Hct 41.0, Plt Count 618 H 03/15/19 11:15: Sodium 140, Potassium 4.1, BUN 20 H, Creatinine 1.24, Glucose 91 , Magnesium 2.2, Total Bilirubin 0.5, AST 10 L, ALT 15, Alkaline Phosphatase 139 H Assessment and Plan - Problems (Diagnosis) (1) COPD with acute exacerbation Onset Date: 12/27/16 Current Visit: No Status: Acute Plan: COPD exacerbation with failed outpatient therapy -patient was started on azithromycin at home -duo nebs, steroids, oxygen at this time -pulmonology consultation and no improvement in next 24 hr -will continue with azithromycin here in the hospital -monitor patient closely (2) GERD (gastroesophageal reflux disease) Onset Date: 12/27/16 Current Visit: No Status: Chronic Plan: Restart home medication of Protonix Qualifiers: Esophagitis presence: without esophagitis Qualified Code(s): K21.9 - Gastro -esophageal reflux disease without esophagitis (3) Hyperlipidemia Onset Date: 12/27/16 Current Visit: No Status: Chronic Plan: Restart home medication of Lipitor Qualifiers: Hyperlipidemia type: mixed hyperlipidemia Qualified Code(s): E78.2 - Mixed hyperlipidemia (4) Hypothyroidism Onset Date: 12/27/16 Current Visit: No Status: Chronic Plan: Restart home medication of levothyroxine Qualifiers: Hypothyroidism type: acquired Qualified Code(s): E03.9 - Hypothyroidism, unspecified (5) Smoking Onset Date: 12/27/16 Current Visit: No Status: Chronic Plan: Counseled extensively over 30 min regarding smoking cessation. - Plan Admit patient to medical-surgical floor for COPD exacerbation and dehydration. Will continue with IV fluids along with duo nebs and steroids. Will monitor for next 24-48 hr. Discharge Plan: Home Plan to discharge in: Greater than 2 days - Advance Directives Does patient have a Living Will: No Does patient have a Durable POA for Healthcare: No - Code Status/Comfort Care Code Status Assessed: Yes Critical Care: No
[2019-03-15] MEDS ORDERED: IPRATROPIUM BROM 0.5MG/2.5ML NEB PRN (15:54)
[2019-03-15] MEDS ORDERED: ALBUTEROL 2.5 MG/3 ML NEB SOL NEB PRN (15:54)
[2019-03-15] MEDS ORDERED: ONDANSETRON 4 MG/2 ML VIAL IV PRN (15:54)
[2019-03-15] MEDS ORDERED: NA CHLORIDE 0.9% 1,000 ML IV SCH (15:54)
[2019-03-15] MEDS ORDERED: METHYLPREDNISOLONE 40 MG INJ IV SCH (17:00)
[2019-03-15] MEDS: BENZONATATE 100 MG CAP PO SCH ×2 (17:51→20:23)
--- NOTE | 2019-03-15 18:40 | EKG ---
Test Date: 2019-03-15 Test Time: 11:23:09 Lithographic Plate Maker Apprentice: GEOVANNA MEASUREMENT RESULTS: Intervals: Rate: 94 VA: 136 QRSD: 84 QT: 394 QTc: 492 Harper: P: 62 VA: 136 QRS: 36 T: 70 INTERPRETIVE STATEMENTS: Sinus rhythm with occasional premature ventricular complexes Prolonged QT Abnormal ECG Compared to ECG 02/01/2018 15:27:29 Ventricular premature complex(es) now present Prolonged QT interval now present Electronically Signed On 03-15-19 18:39:02 CDT by Pablo Herrera
[2019-03-15] MEDS: predniSONE 20 MG TAB PO SCH (20:23)
[2019-03-15] MEDS ORDERED: PANTOPRAZOLE 40MG TABLET PO SCH (22:30)
[2019-03-16 05:37] LABS: Absolute Lymphocytes (CBC) 1.3 K/uL (0.7-4.9); Basophils % 0.1 % (0-1.3); Hematocrit 31.6 % (36.0-45.0); Lymphocytes % 10.8 % (15.3-44.8); MPV 6.9 fL (7.6-11.3); Monocytes % 4.8 % (3.3-12.3); RBC Red Blood Cell Count 4.53 M/uL (3.86-4.86)
[2019-03-16] MEDS: BENZONATATE 100 MG CAP PO SCH (08:50)
[2019-03-16] MEDS: predniSONE 20 MG TAB PO SCH (08:50)
--- NOTE | 2019-03-16 11:25 | P.SSS ---
Patient History Date of Service: 03/16/19 Primary Care Provider: Dr Medina Reason for admission: SOB History of Present Illness: 58 y/o F with Pmhx of anxiety and depression presenting to the ER with C/o SOB and cough x 3 days. Progressively getting worse. Cough is non productive. Pt gets really SOB after coughing spells and feels dizzy. Denies having Fever, chills, N/V or any other symptoms. Negative for Smoking or alcohol. No sick Contact. Was seen by PCP and given Zpak but did not have any improvement in the symptoms. Allergies adhesive tape Allergy (Verified 02/15/18 08:31) blisters latex tape Allergy (Uncoded 02/15/18 08:31) blisters Pnemonia vaccine Allergy (Uncoded 02/15/18 08:31) Rash Home Medications: Alprazolam [Xanax] 0.5 mg PO BID 03/15/19 Amlodipine [Norvasc*] 2.5 mg PO DAILY 03/15/19 Bupropion HCl [Budeprion Xl] 300 mg PO DAILY 03/15/19 Citalopram [Celexa*] 40 mg PO BEDTIME 03/15/19 Meloxicam 15 mg PO BEDTIME 03/15/19 Omeprazole [Prilosec] 40 mg PO BEDTIME 03/15/19 Ropinirole HCl [Requip*] 1 mg PO BEDTIME 03/15/19 Simvastatin 20 mg PO BEDTIME 03/15/19 Benzonatate [Tessalon Perle*] 100 mg PO BID #30 cap 03/16/19 Budesonide/Formoterol Fumarate [Symbicort 160-4.5 Mcg Inhaler] 2 puff IH BID #1 hfa.aer.ad 03/16/19 predniSONE [Prednisone*] 20 mg PO BID #10 tab 03/16/19 - Past Medical/Surgical History Has patient received pneumonia vaccine in the past: No Diabetic: No -: Anxiety -: Depression -: Degenerative Disk Disease -: Hyperrlipidemia -: GERD -: Hypothyroidism -: Lap Band -: R arm sx -: Tubal ligation -: Carpel Tunnel Repair - Family History Family History: Reviewed- Non-Contributory - Family History Mother -: Cancer - Social History Smoking Status: Current every day smoker Alcohol use: No CD- Drugs: No Caffeine use: No Place of Residence: Home Review of Systems 10-point ROS is otherwise unremarkable Physical Examination - Vital Signs Temperature: 98.1 F Blood Pressure: 154/81 Pulse: 93 Respirations: 18 Pulse Ox (%): 93 - Physical Exam General: Alert, In no apparent distress HEENT: Atraumatic, PERRLA, Mucous membr. moist/pink, EOMI, Sclerae nonicteric Neck: Supple, 2+ carotid pulse no bruit, No LAD, Without JVD or thyroid abnormality Respiratory: Clear to auscultation bilaterally, Normal air movement Cardiovascular: Regular rate/rhythm, Normal S1 S2 Gastrointestinal: Normal bowel sounds, No tenderness Musculoskeletal: No tenderness Integumentary: No rashes Neurological: Normal gait, Normal speech, Normal strength at 5/5 x4 extr, Normal tone, Normal affect Lymphatics: No axilla or inguinal lymphadenopathy - Studies Laboratory Data (last 24 hrs) 03/15/19 11:15: PT 12.0, INR 1.02 03/15/19 11:15: WBC 12.9 H, Hgb 12.5, Hct 41.0, Plt Count 618 H 03/15/19 11:15: Sodium 140, Potassium 4.1, BUN 20 H, Creatinine 1.24, Glucose 91 , Magnesium 2.2, Total Bilirubin 0.5, AST 10 L, ALT 15, Alkaline Phosphatase 139 H - Diagnosis (Problem(s)) (1) COPD with acute exacerbation Onset Date: 12/27/16 Current Visit: No Status: Acute (2) GERD (gastroesophageal reflux disease) Onset Date: 12/27/16 Current Visit: No Status: Chronic Qualifiers: Esophagitis presence: without esophagitis Qualified Code(s): K21.9 - Gastro -esophageal reflux disease without esophagitis (3) Hyperlipidemia Onset Date: 12/27/16 Current Visit: No Status: Chronic Qualifiers: Hyperlipidemia type: mixed hyperlipidemia Qualified Code(s): E78.2 - Mixed hyperlipidemia (4) Hypothyroidism Onset Date: 12/27/16 Current Visit: No Status: Chronic Qualifiers: Hypothyroidism type: acquired Qualified Code(s): E03.9 - Hypothyroidism, unspecified (5) Smoking Onset Date: 12/27/16 Current Visit: No Status: Chronic Treatment Summary: Overall during hospital stay patient remain stable Patient was initially admitted to the hospital for COPD exacerbation most likely secondary to acute bronchitis. Patient was given neb treatments here in the hospital along with oxygen. Patient was successfully weaned off of the oxygen and had resolution of her symptoms and thus was discharged home under stable condition. Patient was kept on duo nebs, steroids, oxygen while here in the hospital was able to successfully transition to inhalers at home. Patient currently does not take any maintenance inhaler and thus was asked to take Symbicort at home and was prescribed prednisone for 5 days to complete the course. Patient was also asked to follow up with pulmonology in about 1-2 days post discharge. Patient demonstrated understanding and thus was discharged home under stable condition. While here in the hospital patient also had elevated lactic acid however her pro calcitonin was negative along with a white count which was not concerning for sepsis. Her lactic acid is most likely elevated secondary to dehydration. Patient did receive fluids while here in the hospital as well. Patient is to follow up with a PCP in about 1-2 days post discharge to follow up with the lab work as well. - Disposition Disposition: ROUTINE DISCHARGE Condition: GOOD Diet: Regular Activity: Ad porter
== END 2019-03-16 13:20 | disposition home or self-care (01) ==
LOC: ER 10:57 → ERHOLD 13:03 → 2ND 15:41
PROVIDERS: ADMIT Family Medicine; ATTEND Family Medicine
DX: J44.1 Chronic obstructive pulmonary disease with (acute) exacerbation (principal); K21.9 Gastro-esophageal reflux disease without esophagitis; E78.5 Hyperlipidemia, unspecified; E03.9 Hypothyroidism, unspecified; F41.8 Other specified anxiety disorders; F17.210 Nicotine dependence, cigarettes, uncomplicated; Z98.84 Bariatric surgery status; Z91.040 Latex allergy status
CPT/HCPCS: 93005; 87040 ×2; 85025 ×2; 80048 ×2; 36415; 83735; 85610; 80076; 83605 ×2; 84484; 84145; 83880 ×2; 71045; 94640 ×2; 94760 ×3; 99285; J2543; J7030; J2930; J2920; G0378 ×2; J7512

== ENCOUNTER 2019-12-11 12:07 | Observation (INO) | payer OTHER ==
--- OUTSIDE RECORDS SUMMARY | 2019-12-11 12:09 | XMS REPORT | Summary of Care ---
:1960 Author Organization [facility] Address [address] [place] [id number] Care Team Providers Name Role Phone Jason Medina Primary Care Provider Reason for Referral Radiology Services (Routine) Status Reason Specialty Diagnoses / Referred By Referred To Procedures Contact Contact Closed Diagnostic Diagnoses Osteoporosis, unspecified osteoporosis type, unspecified pathological fracture presence Jason Medina Radiology Procedures DEXA AXIAL (HIP AND SPINE) [address] [place] [address] Radiology Services (Routine) Status Reason Specialty Diagnoses / Referred By Referred To Procedures Contact Contact Closed Diagnostic Diagnoses Osteoporosis, unspecified osteoporosis type, unspecified pathological fracture presence Jason Medina Radiology Procedures DEXA AXIAL (HIP AND SPINE) [address] [place] [address] Reason for Visit Radiology Services (Routine) Status Reason Specialty Diagnoses / Referred By Referred To Procedures Contact Contact Closed Diagnostic Diagnoses Osteoporosis, unspecified osteoporosis type, unspecified pathological fracture presence Jason Medina Radiology Procedures DEXA AXIAL (HIP AND SPINE) [address] [place] [address] Encounter Details Date Type Department Care Team Description 06/04/2019 Hospital Encounter [facility] Radiology Arrived [facility] [address] [place] [address] [place] [address] [place] [phone] Allergies No Known Allergiesdocumented as of this encounter (statuses as of 06/05/2019) Medications Medication Sig Dispensed Refills Start Date End Date Status hydrOXYzine (VISTARIL) Take 1 capsule 20 capsule 0 08/01/2016 Active 25 mg capsule by mouth 3 (three) times daily as needed for Anxiety. proMETHazine Take 1 tablet by 12 tablet 0 08/01/2016 Active (PHENERGAN) 25 mg mouth every 6 tablet (six) hours as needed for Nausea and Vomiting (N/V). sulfamethoxazole-trimet Take 1 tablet by 20 tablet 0 08/01/2016 Active hoprim (BACTRIM DS) mouth every 12 800-160 mg per tablet (twelve) hours. phenazopyridine Take 1 tablet by 9 tablet 0 08/01/2016 Active (PYRIDIUM) 200 mg mouth 3 (three) tablet times daily. documented as of this encounter (statuses as of 06/05/2019) Active Problems Not on filedocumented as of this encounter (statuses as of 06/05/2019) Social History Tobacco Use Types Packs/Day Years Used Date Never Assessed Sex Assigned at Date Recorded Not on file Job Start Date Occupation Industry Not on file Not on file Not on file Travel History Travel Start Travel End No recent travel history available. documented as of this encounter Last Filed Vital Signs Not on filedocumented in this encounter Plan of Treatment Health Maintenance Due Date Last Done Comments HEPATITIS C (HCV) SCREEN 1960 DTaP,Tdap,and Td Vaccines (1 - 1977 Tdap) COLONOSCOPY 2008 Zoster Recombinant Vaccine 2008 (SHINGRIX) (1 of 2) MAMMOGRAM 12/22/2011 12/21/2010 PAP SMEAR 12/01/2013 12/01/2010 INFLUENZA VACCINE (#1) 2019 PNEUMOCOCCAL 0-64 YEARS COMBINED Aged Out No longer eligible based on SERIES patient's age to complete this topic documented as of this encounter Procedures Procedure Name Priority Date/Time Associated Diagnosis Comments DEXA AXIAL (HIP AND Routine 06/04/2019 1:04 Osteoporosis, Results for this SPINE) PM CDT unspecified procedure are in osteoporosis type, the results unspecified section. pathological fracture presence NOTICE OF BILLING Routine 06/04/2019 12:29 PRACTICES FOR MEDICARE PM CDT PATIENTS [facility] PATIENT FINANCIAL Routine 06/04/2019 12:29 POLICY PM CDT NO SHOW OR MISSED Routine 06/04/2019 12:29 APPOINTMENT POLICY PM CDT ACKNOWLEDGEMENT NOTICE OF PRIVACY Routine 06/04/2019 12:29 PRACTICES PM CDT CONSENT/REFUSAL FOR Routine 06/04/2019 12:28 DIAGNOSIS AND TREATMENT PM CDT ASSIGNMENT OF BENEFITS Routine 06/04/2019 12:28 PM CDT documented in this encounter Results DEXA AXIAL (HIP AND SPINE) (06/04/2019 1:04 PM CDT) Specimen Impressions Performed At PACS/VR/DOSE Osteopenia. Narrative Performed At EXAM: DEXA AXIAL (HIP AND SPINE) PACS/VR/DOSE HISTORY: 58 yearsFemale; osteoporosis screening. COMPARISON:None TECHNIQUE: Bone densitometry of the lumbar spine and right hip was performed on a Weblance system. WHO-definitionsT score normal T >/=- 1 SD around the mean osteopenia-1 > T > -2.5 SD below the mean osteoporosis T >/=-2.5 SD below the mean Fracture risk doubles for each 1.5 SD below the mean. FINDINGS: 1. Lumbar spine L1-L4: T score 0.1.Bone mineral density of 1.208 g/cm^2. 2. Right Hip: T score -1.8.Bone mineral density of 0.784 g/cm^2. Right Neck: T score -2.3.Bone mineral density of 0.713 g/cm^2. Procedure Note [facility], Radiant Results Inft User - 06/04/2019 2:13 PM CDT EXAM: DEXA AXIAL (HIP AND SPINE) HISTORY: 58 years Female; osteoporosis screening. COMPARISON: None TECHNIQUE: Bone densitometry of the lumbar spine and right hip was performed on a Weblance system. WHO-definitions T score normal T >/=- 1 SD around the mean osteopenia -1 > T > -2.5 SD below the mean osteoporosis T >/=-2.5 SD below the mean Fracture risk doubles for each 1.5 SD below the mean. FINDINGS: 1. Lumbar spine L1-L4: T score 0.1. Bone mineral density of 1.208 g/cm^2. 2. Right Hip: T score -1.8. Bone mineral density of 0.784 g/cm^2. Right Neck: T score -2.3. Bone mineral density of 0.713 g/cm^2. IMPRESSION Osteopenia. Performing Organization Address City/State/Zipcode Phone Number PACS/VR/DOSE documented in this encounter Visit Diagnoses Diagnosis Osteoporosis, unspecified osteoporosis type, unspecified pathological fracture presence documented in this encounter Insurance Payer Benefit Plan / Subscriber ID Effective Dates Phone Address Type Group [employer] [id number] 2018-Presen Medicare Adv PLUS PLUS t HMO CLASSIC/VALUE (Work) [id number] documented as of this encounter
--- OUTSIDE RECORDS SUMMARY | 2019-12-11 12:09 | XMS REPORT ---
:1960 [facility] Address [address] [place] [address] [address] [place] [address] Care Team Providers Name Role Phone Unavailable Unavailable Unavailable Problems This patient has no known problems. Allergies, Adverse Reactions, Alerts This patient has no known allergies or adverse reactions. Medications This patient has no known medications.
[2019-12-11] MEDS ORDERED: IPRATROPIUM BROM 0.5MG/2.5ML ONE (12:53)
[2019-12-11] MEDS ORDERED: PANTOPRAZOLE 40 MG INJ ONE (12:53)
[2019-12-11] MEDS ORDERED: LEVALBUTEROL 1.25 MG/3 ML NEB ONE (12:53)
[2019-12-11] MEDS ORDERED: NA CHLORIDE 0.9% 1,000 ML ONE (12:54)
[2019-12-11] MEDS ORDERED: PIPER/TAZO/NS 3.375gm 3.375 GM/100 ML BAG ONE (12:54)
[2019-12-11 13:01] LABS: Protime INR 0.96
--- NOTE | 2019-12-11 13:03 | EKG ---
Test Date: 2019-12-11 Test Time: 12:37:51 Supervisor Blueprinting And Photocopy: JOSELYN MEASUREMENT RESULTS: Intervals: Rate: 99 [place]: 140 QRSD: 76 QT: 362 QTc: 464 [place]: P: 70 [place]: 140 QRS: 64 T: 79 INTERPRETIVE STATEMENTS: Sinus rhythm with fusion complexes Otherwise normal ECG Compared to ECG 03/15/2019 11:23:09 Fusion complex(es) now present Ventricular premature complex(es) no longer present Prolonged QT interval no longer present Electronically Signed On 12-11-19 13:03:00 CDT by Pablo Herrera
[2019-12-11 13:06] LABS: Absolute Lymphocytes (CBC) 2.1 K/uL (0.7-4.9); Basophils % 0.6 % (0-1.3); Lymphocytes % 14.3 % (15.3-44.8); MPV 7.1 fL (7.6-11.3); RBC Red Blood Cell Count 4.85 M/uL (3.86-4.86)
--- NOTE | 2019-12-11 13:06 | RAD REPORT ---
EXAM DESCRIPTION: RAD - Chest Single View - 12/11/2019 1:00 pm CLINICAL HISTORY: COPD Chest pain. COMPARISON: Chest Single View dated 03/15/2019; Chest Pa And Lat (2 Views) dated 07/27/2018; Chest Pa And Lat (2 Views) dated 02/01/2018; Chest Pa And Lat (2 Views) dated 03/01/2017 FINDINGS: Portable technique limits examination quality. The lungs are grossly clear. The heart is normal in size. No displaced fractures. IMPRESSION: No acute intrathoracic process suspected.
[2019-12-11 13:14] LABS: ALT/SGPT 25 U/L (12-78); AST/SGOT 22 U/L (15-37); Albumin 3.3 g/dL (3.4-5.0); Alkaline Phosphatase 140 U/L (45-117); BUN Blood Urea Nitrogen 15 mg/dL (7-18); Bicarbonate 28 mmol/L (21-32); Bilirubin Direct < 0.1 mg/dL (0-0.2); Bilirubin Total 0.2 mg/dL (0.2-1.0); Glucose Level 103 mg/dL (74-106); Lipase 87 U/L (73-393); Magnesium 2.1 mg/dL (1.8-2.4); NT PRO-BNP 80 pg/mL (<125); Potassium 3.7 mmol/L (3.5-5.1); Protein, Total 7.9 g/dL (6.4-8.2); Sodium Level 137 mmol/L (136-145); Troponin (Emerg Dept Use Only) < 0.02 ng/mL (0.0-0.045)
--- NOTE | 2019-12-11 13:43 | RAD REPORT ---
EXAM DESCRIPTION: CT - Angio Aorta For Dissection - 12/11/2019 1:31 pm CLINICAL HISTORY: Chest pain radiating to the back. Dissection;Dyspnea;PE COMPARISON: No comparisons TECHNIQUE: CT angiography of the aorta was performed with MIPs. All CT scans are performed using dose optimization technique as appropriate and may include automated exposure control or mA/KV adjustment according to patient size. FINDINGS: A left aortic arch is present with normal branching pattern of the great vessels.No acute aortic finding is seen such as aneurysm, penetrating ulcer or dissection. The celiac axis, SMA, ARSLAN and renal arteries are patent. No evidence of pulmonary embolism. The lungs are mildly emphysematous. Gastric banding is present with distention of the esophagus with fluid proximally. The liver demonstrates no focal mass or biliary dilatation.The spleen, pancreas, adrenal glands and k idneys are within normal limits for arterial phase imaging. No bowel obstruction, free fluid or abscess.The appendix is not identified as a discrete structure, h owever, no secondary findings of appendicitis are identified. No pathologic enlarged lymphadenopathy identified. Anterolisthesis with degenerative changes present L5-S1. IMPRESSION: No acute aortic finding is demonstrated.
--- NOTE | 2019-12-11 13:48 | ER ---
Nurse's Notes [facility] Name: Georgina Mcneil Age: 59 yrs Sex: Female : 1960 Arrival Date: 12/11/2019 Time: 12:10 Bed 8 Private MD: Diagnosis: Dyspnea;Chronic obstructive pulmonary disease with (acute) exacerbation;Gastro-esophageal reflux disease Presentation: 12/10 12:10 Chief complaint: EMS states: Shortness of breath started last night, gave 2 A\T\As and jl7 125 mg solu-medrol IVP, denies fever. Coronavirus screen: The patient has NOT traveled to a country currently being monitored by the [facility] within the last 14 days. Proceed with normal triage procedures. The patient has NOT had contact with any known and/or suspected case of coronavirus. Proceed with normal triage procedures. Ebola Screen: No symptoms or risks identified at this time. Initial Sepsis Screen: Does the patient meet any 2 criteria? No. Patient's initial sepsis screen is negative. Does the patient have a suspected source of infection? No. Patient's initial sepsis screen is negative. Risk Assessment: Do you want to hurt yourself or someone else? Patient reports no desire to harm self or others. Onset of symptoms was December 10, 2019. 12:10 Method Of Arrival: EMS: [facility] jl7 12:10 Acuity: ROSI 3 jl7 Triage Assessment: 12:10 General: Appears in no apparent distress. uncomfortable, Behavior is calm, cooperative, jl7 appropriate for age. Pain: Denies pain. Neuro: Level of Consciousness is awake, alert, obeys commands, Oriented to person, place, time, situation. Cardiovascular: Patient's skin is warm and dry. Respiratory: Airway is patent Respiratory effort is even, labored, Respiratory pattern is regular, symmetrical, Breath sounds with wheezes bilaterally. Derm: Skin is pink, warm \T\ dry. Historical: - Allergies: 12:42 Latex, Natural Rubber; jl7 12:42 Pnemonia vaccine; jl7 12:42 Tape; jl7 - Home Meds: 12:42 amlodipine oral [Active]; Celexa 40 mg Oral tab 1 tab once daily [Active]; Wellbutrin jl7 Oral [Active]; Albuterol Inhl [Active]; Prilosec Oral [Active]; ropinirole Oral [Active]; Tramadol Oral [Active]; Xanax Oral [Active]; - PMHx: 12:42 Anxiety; Arthritis; Degenerative disc disease; Depression; GERD; hiatal hernia; jl7 Hyperlipidemia; Hypothyroidism; - Immunization history:: Adult Immunizations not up to date. - Social history:: Smoking status: Patient denies any tobacco usage or history of. - Family history:: not pertinent. Screenin:21 Abuse screen: Denies threats or abuse. Denies injuries from another. Nutritional jl7 screening: No deficits noted. Tuberculosis screening: No symptoms or risk factors identified. Fall Risk IV access (20 points). Total Leggett Fall Scale indicates No Risk (0-24 pts). Assessment: 12:10 General: See triage assessment. jl7 13:21 Reassessment: Patient appears in no apparent distress at this time. Patient and/or jl7 family updated on plan of care and expected duration. Pain level reassessed. Patient is alert, oriented x 3, equal unlabored respirations, skin warm/dry/pink. Patient states feeling better. Patient states symptoms have improved. Vital Signs: 12:10 BP 137 / 85; Pulse 101; Resp 17 S; Temp 98.2(O); Pulse Ox 98% on R/A; Weight 81.65 kg 7 (R); Height 5 ft. 4 in. (162.56 cm) (R); 13:40 BP 145 / 86; Pulse 100; Resp 17 S; Pulse Ox 100% on R/A; jl7 15:46 BP 162 / 84; Pulse 102; Resp 21; Pulse Ox 96% ; jl7 12:10 Body Mass Index 30.90 (81.65 kg, 162.56 cm) 7 ED Course: 12:10 Patient arrived in ED. jl7 12:10 Arm band placed on right wrist. jl7 12:13 Solomon Marie MD is Attending Physician. [facility] 12:34 Initial lab(s) drawn, by me, sent to lab. First set of blood cultures drawn by me. lt1 12:37 Triage completed. jl7 12:39 Inserted saline lock: 22 gauge in left antecubital area, using aseptic technique. lt1 12:39 Call light in reach. Door closed. Lights dimmed. Warm blanket given. lt1 12:51 EKG done, by accessibility lift technician. reviewed by Solomon Marie MD. tc 13:03 XRAY Chest (1 view) In Process Unspecified. EDMS 13:05 Second set of blood cultures drawn by me. jl7 13:38 Ermias Villegas, RN is Primary Nurse. jl7 13:40 CT Aorta for Dissection In Process Unspecified. EDMS 13:46 Montez Taylor is Hospitalizing Provider. indu 18:25 No provider procedures requiring assistance completed. IV discontinued, intact, jl7 bleeding controlled, Pressure dressing applied, 22 to left AC infiltrated. 18:32 Inserted saline lock: 20 gauge in left hand, using aseptic technique. jl7 Administered Medications: 13:00 Drug: NS 0.9% 1000 ml Route: IV; Rate: 125 ml/hr; Site: left antecubital; jl7 18:33 Follow up: Response: No adverse reaction; IV Status: Infusion continued upon admission jl7 13:00 Drug: AtroVENT Aerosol 0.5 mg Route: Inhalation; jl7 13:00 Drug: ProTONIX 40 mg Route: IVP; Site: left antecubital; jl7 13:39 Follow up: Response: No adverse reaction jl7 13:05 Drug: Xopenex 3.75 mg Route: Inhalation; jl7 13:10 Drug: Zosyn 3.375 grams Route: IVPB; Infused Over: 60 mins; Site: left antecubital; jl7 14:10 Follow up: Response: No adverse reaction; IV Status: Completed infusion jl7 13:26 Not Given (EMS gave medication MOUNTAIN OR GLACIER GUIDE): SOLU-Medrol 125 mg IVP once jl7 Outcome: 13:47 Decision to Hospitalize by Provider. indu 18:32 Admitted to Tele accompanied by tech, via stretcher, room 215, with chart, Report jl7 called to TERRIE Montelongo 18:32 Condition: stable 18:32 Discharge instructions given to patient, Instructed on the need for admit, Demonstrated understanding of instructions. 18:45 Patient left the ED. jl7 Signatures: Dispatcher [employer] Solomon Ortiz MD MD cha Callis, Tiffany, pediatrician EKG Ttc Ermias Villegas, RN RN jl7 Yady Villa lt1
--- NOTE | 2019-12-11 13:48 | EDPHYS ---
Physician Documentation [facility] Name: Georgina Mcneil Age: 59 yrs Sex: Female : 1960 Arrival Date: 12/11/2019 Time: 12:10 Bed 8 Private MD: ED Physician Solomon Marie HPI: 12/10 12:20 This 59 yrs old Female presents to ER via Unassigned with complaints of COPD indu Exacerbation. 12:20 The patient has shortness of breath at rest, with light activity. Onset: The indu symptoms/episode began/occurred 1 day(s) ago. Duration: The symptoms are continuous, and are steadily getting worse. The patient's shortness of breath has no apparent modifying factors. The patient or guardian reports airway noise, cough, difficulty breathing. Modifying factors: The symptoms are alleviated by nothing. the symptoms are aggravated by activity, lying flat. Associated signs and symptoms: Pertinent positives: non-productive cough, dizziness. Severity of symptoms: At their worst the symptoms were mild moderate in the emergency department the symptoms are unchanged. Associated signs and symptoms: The patient has no apparent associated signs or symptoms. Historical: - Allergies: 12:42 Latex, Natural Rubber; jl7 12:42 Pnemonia vaccine; jl7 12:42 Tape; jl7 - Home Meds: 12:42 amlodipine oral [Active]; Celexa 40 mg Oral tab 1 tab once daily [Active]; Wellbutrin jl7 Oral [Active]; Albuterol Inhl [Active]; Prilosec Oral [Active]; ropinirole Oral [Active]; Tramadol Oral [Active]; Xanax Oral [Active]; - PMHx: 12:42 Anxiety; Arthritis; Degenerative disc disease; Depression; GERD; hiatal hernia; jl7 Hyperlipidemia; Hypothyroidism; - Immunization history:: Adult Immunizations not up to date. - Social history:: Smoking status: Patient denies any tobacco usage or history of. - Family history:: not pertinent. ROS: 12:20 Constitutional: Negative for fever, chills, and weight loss, Eyes: Negative for injury, indu pain, redness, and discharge, ENT: Negative for injury, pain, and discharge, Neck: Negative for injury, pain, and swelling, Cardiovascular: Negative for chest pain, palpitations, and edema, Abdomen/GI: Negative for abdominal pain, nausea, vomiting, diarrhea, and constipation, Back: Negative for injury and pain, : Negative for injury, bleeding, discharge, and swelling, MS/Extremity: Negative for injury and deformity, Skin: Negative for injury, rash, and discoloration, Neuro: Negative for headache, weakness, numbness, tingling, and seizure, Psych: Negative for depression, anxiety, suicide ideation, homicidal ideation, and hallucinations, Allergy/Immunology: Negative for hives, rash, and allergies, Endocrine: Negative for neck swelling, polydipsia, polyuria, polyphagia, and marked weight changes, Hematologic/Lymphatic: Negative for swollen nodes, abnormal bleeding, and unusual bruising. 12:20 Respiratory: Positive for cough, with no reported sputum, wheezing, expiratory. 12:20 MS/extremity: Negative for decreased range of motion, swelling, tenderness. Exam: 12:20 Constitutional: This is a well developed, well nourished patient who is awake, alert, indu and in no acute distress. Head/Face: Normocephalic, atraumatic. Eyes: Pupils equal round and reactive to light, extra-ocular motions intact. Lids and lashes normal. Conjunctiva and sclera are non-icteric and not injected. Cornea within normal limits. Periorbital areas with no swelling, redness, or edema. ENT: Nares patent. No nasal discharge, no septal abnormalities noted. Tympanic membranes are normal and external auditory canals are clear. Oropharynx with no redness, swelling, or masses, exudates, or evidence of obstruction, uvula midline. Mucous membranes moist. Neck: Trachea midline, no thyromegaly or masses palpated, and no cervical lymphadenopathy. Supple, full range of motion without nuchal rigidity, or vertebral point tenderness. No Meningismus. Chest/axilla: Normal chest wall appearance and motion. Nontender with no deformity. No lesions are appreciated. Cardiovascular: Regular rate and rhythm with a normal S1 and S2. No gallops, murmurs, or rubs. Normal PMI, no JVD. No pulse deficits. Abdomen/GI: Soft, non-tender, with normal bowel sounds. No distension or tympany. No guarding or rebound. No evidence of tenderness throughout. Back: No spinal tenderness. No costovertebral tenderness. Full range of motion. Female : Normal external genitalia. Skin: Warm, dry with normal turgor. Normal color with no rashes, no lesions, and no evidence of cellulitis. MS/ Extremity: Pulses equal, no cyanosis. Neurovascular intact. Full, normal range of motion. Neuro: Awake and alert, GCS 15, oriented to person, place, time, and situation. Cranial nerves II-XII grossly intact. Motor strength 5/5 in all extremities. Sensory grossly intact. Cerebellar exam normal. Normal gait. Psych: Awake, alert, with orientation to person, place and time. Behavior, mood, and affect are within normal limits. 12:20 Respiratory: Exam negative for wheezing. 12:20 Musculoskeletal/extremity: DVT Exam: No signs of deep vein thrombosis. no pain, no swelling, no tenderness, negative Homans' sign noted on exam, no appreciated bluish discoloration, no erythema, no increased warmth. Vital Signs: 12:10 BP 137 / 85; Pulse 101; Resp 17 S; Temp 98.2(O); Pulse Ox 98% on R/A; Weight 81.65 kg 7 (R); Height 5 ft. 4 in. (162.56 cm) (R); 13:40 BP 145 / 86; Pulse 100; Resp 17 S; Pulse Ox 100% on R/A; jl7 15:46 BP 162 / 84; Pulse 102; Resp 21; Pulse Ox 96% ; jl7 12:10 Body Mass Index 30.90 (81.65 kg, 162.56 cm) 7 MDM: 12:13 Patient medically screened. [facility] 12:22 Data reviewed: vital signs, nurses notes, lab test result(s), EKG, radiologic studies, [facility] CT scan, plain films. 12/10 12:20 Order name: Basic Metabolic Panel; Complete Time: 13:42 [facility] 12/10 12:20 Order name: CBC with Diff; Complete Time: 13:42 [facility] 12/10 12:20 Order name: LFT's; Complete Time: 13:42 [facility] 12/10 12:20 Order name: Magnesium; Complete Time: 13:42 [facility] 12/10 12:20 Order name: NT PRO-BNP; Complete Time: 13:42 [facility] 12/10 12:20 Order name: PT-INR; Complete Time: 13:42 [facility] 12/10 12:20 Order name: Troponin (emerg Dept Use Only); Complete Time: 13:42 [facility] 12/10 12:20 Order name: XRAY Chest (1 view); Complete Time: 13:42 [facility] 12/10 12:20 Order name: Blood Culture Adult (2) [facility] 12/10 12:20 Order name: Lipase; Complete Time: 13:42 [facility] 12/10 12:20 Order name: Urine Culture [facility] 12/10 12:20 Order name: CT Aorta for Dissection [facility] 12/10 12:20 Order name: EKG; Complete Time: 12:25 [facility] 12/10 12:20 Order name: Cardiac monitoring; Complete Time: 12:40 [facility] 12/10 12:20 Order name: EKG - Nurse/Tech; Complete Time: 12:40 [facility] 12/10 12:20 Order name: IV Saline Lock; Complete Time: 12:40 [facility] 12/10 12:20 Order name: Labs collected and sent; Complete Time: 12:40 [facility] 12/10 12:20 Order name: O2 Per Protocol; Complete Time: 12:40 [facility] 12/10 12:20 Order name: O2 Sat Monitoring; Complete Time: 12:40 [facility] Administered Medications: 13:00 Drug: NS 0.9% 1000 ml Route: IV; Rate: 125 ml/hr; Site: left antecubital; jl7 18:33 Follow up: Response: No adverse reaction; IV Status: Infusion continued upon admission jl7 13:00 Drug: AtroVENT Aerosol 0.5 mg Route: Inhalation; jl7 13:00 Drug: ProTONIX 40 mg Route: IVP; Site: left antecubital; jl7 13:39 Follow up: Response: No adverse reaction jl7 13:05 Drug: Xopenex 3.75 mg Route: Inhalation; jl7 13:10 Drug: Zosyn 3.375 grams Route: IVPB; Infused Over: 60 mins; Site: left antecubital; jl7 14:10 Follow up: Response: No adverse reaction; IV Status: Completed infusion jl7 13:26 Not Given (EMS gave medication PAIRER ODDS): SOLU-Medrol 125 mg IVP once jl7 Disposition: 12/11/19 13:47 Hospitalization ordered by Montez Taylor for Inpatient Admission. Preliminary diagnosis are Dyspnea, Chronic obstructive pulmonary disease with (acute) exacerbation, Gastro-esophageal reflux disease. - Bed requested for Telemetry/MedSurg (Inpatient). - Status is Inpatient Admission. jl7 - Condition is Fair. - Problem is new. - Symptoms have improved. Signatures: Dispatcher [employer] EDRenée Martin RN RN Solomon Green MD MD cha Leal, Jahala, RN RN jl7 Corrections: (The following items were deleted from the chart) 15:54 13:47 Hospitalization Ordered by Montez Taylor for Inpatient Admission. Preliminary diagnosis is Dyspnea; Chronic obstructive pulmonary disease with (acute) exacerbation; Gastro-esophageal reflux disease. Bed requested for Telemetry/MedSurg (Inpatient). Status is Inpatient Admission. Condition is Fair. Problem is new. Symptoms have improved. [facility] 18:45 15:54 12/11/2019 13:47 Hospitalization Ordered by Montez Taylor for Inpatient jl7 Admission. Preliminary diagnosis is Dyspnea; Chronic obstructive pulmonary disease with (acute) exacerbation; Gastro-esophageal reflux disease. Bed requested for Telemetry/MedSurg (Inpatient). Status is Inpatient Admission. Condition is Fair. Problem is new. Symptoms have improved. dw
--- NOTE | 2019-12-11 14:37 | P.HP ---
Certification for Inpatient Patient admitted to: Observation With expected LOS: <2 Midnights Practitioner: I am a practitioner with admitting privileges, knowledge of patient current condition, hospital course, and medical plan of care. Services: Services provided to patient in accordance with Admission requirements found in Title 42 Section 412.3 of the Code of Federal Regulations Patient History Date of Service: 12/11/19 Reason for admission: Cough and shortness of breath History of Present Illness: 59-year-old woman with a history of COPD, GERD, gastric lap band surgery, hiatal hernia, history of recurrent regurgitation present to the ED with a complaint of progressive shortness of breath, coughing and wheezing which has been present for 3 days. Patient took Z-Glen without improvement in her symptoms. She stated she developed labored breathing with wheezing this morning. She now reports cough productive of greenish sputum. She denies any fever. She denied chest pain. Patient was wheezing and coughing on arrival to the ED. She was given IV steroid, nebs, IV Zosyn and IV Protonix in the ED with significant improvement in her symptoms. Patient is placed under observation for further management. Allergies adhesive tape Allergy (Verified 02/15/18 08:31) blisters latex tape Allergy (Uncoded 02/15/18 08:31) blisters Pnemonia vaccine Allergy (Uncoded 02/15/18 08:31) Rash Home Medications: Alprazolam [Xanax] 0.5 mg PO BID 03/15/19 Amlodipine [Norvasc*] 2.5 mg PO DAILY 03/15/19 Bupropion HCl [Budeprion Xl] 300 mg PO DAILY 03/15/19 Citalopram [Celexa*] 40 mg PO BEDTIME 03/15/19 Meloxicam 15 mg PO BEDTIME 03/15/19 Omeprazole [Prilosec] 40 mg PO BEDTIME 03/15/19 Ropinirole HCl [Requip*] 1 mg PO BEDTIME 03/15/19 Simvastatin 20 mg PO BEDTIME 03/15/19 Benzonatate [Tessalon Perle*] 100 mg PO BID #30 cap 03/16/19 Budesonide/Formoterol Fumarate [Symbicort 160-4.5 Mcg Inhaler] 2 puff IH BID #1 hfa.aer.ad 03/16/19 predniSONE [Prednisone*] 20 mg PO BID #10 tab 03/16/19 - Past Medical/Surgical History Diabetic: No -: Anxiety -: Depression -: Degenerative Disk Disease -: Hyperrlipidemia -: GERD -: Hypothyroidism -: Lap Band -: R arm sx -: Tubal ligation -: Carpel Tunnel Repair - Family History Mother -: Cancer - Social History Alcohol use: No CD- Drugs: No Caffeine use: No Review of Systems Other: Except as documented, all other systems reviewed and negative. Physical Examination - Physical Exam General: Alert, In no apparent distress, Oriented x3 HEENT: Mucous membr. moist/pink, Sclerae nonicteric Neck: Supple, JVD not distended Respiratory: Normal air movement, Expiratory wheezes (Mild diffuse scattered wheezes) Cardiovascular: No edema, Regular rate/rhythm, Normal S1 S2, No murmurs Gastrointestinal: Normal bowel sounds, Soft and benign, Non-distended, No tenderness Musculoskeletal: No swelling, No erythema Integumentary: No rashes, No erythema Neurological: Normal speech, Normal strength at 5/5 x4 extr, Cranial nerves 3- 12 intact - Studies Laboratory Data (last 24 hrs) 12/11/19 12:34: PT 11.4, INR 0.96 12/11/19 12:34: WBC 14.8 H, Hgb 10.9 L, Hct 35.0 L, Plt Count 376 12/11/19 12:34: Sodium 137, Potassium 3.7, BUN 15, Creatinine 0.85, Glucose 103 , Magnesium 2.1, Total Bilirubin 0.2, AST 22, ALT 25, Alkaline Phosphatase 140 H , Lipase 87 Assessment and Plan - Problems (Diagnosis) (1) COPD with acute exacerbation Onset Date: 12/27/16 Current Visit: No Status: Acute (2) GERD (gastroesophageal reflux disease) Onset Date: 12/27/16 Current Visit: No Status: Chronic Qualifiers: Esophagitis presence: without esophagitis Qualified Code(s): K21.9 - Gastro -esophageal reflux disease without esophagitis (3) Leukocytosis Current Visit: Yes Status: Acute (4) Anemia Current Visit: Yes Status: Acute - Plan Place under observation Schedule nebulizer treatment Will continue IV steroid IV Levaquin IV Protonix for GERD Obtain sputum culture Follow blood cultures Supplemental oxygen p.r.n.. - Advance Directives Does patient have a Living Will: No Does patient have a Durable POA for Healthcare: No
[2019-12-11] MEDS ORDERED: ONDANSETRON 4 MG/2 ML VIAL IV PRN (18:51)
[2019-12-11] MEDS ORDERED: SODIUM CHLORIDE 0.9% 10ML INJ IV PRN (18:51)
[2019-12-11] MEDS ORDERED: ACETAMINOPHEN 500 MG TAB PO PRN (18:51)
[2019-12-11] MEDS: ALBUTEROL 2.5 MG/3 ML NEB SOL NEB SCH (19:51)
[2019-12-11] MEDS: IPRATROPIUM BROM 0.5MG/2.5ML NEB SCH (19:51)
[2019-12-11] MEDS ORDERED: AZITHROMYCIN 500 MG INJ IVPB ONE (19:59)
[2019-12-11] MEDS ORDERED: NA CHLORIDE 0.9% 250 ML ONE (20:00)
[2019-12-11 20:06] VITALS: BMI 34.0
[2019-12-11] MEDS: METHYLPREDNISOLONE 40 MG INJ IV SCH ×2 (20:07→23:47)
[2019-12-11] MEDS: AZITHROMYCIN IV 500 MG in NA CHLORIDE 0.9% 250 ML IVPB SCH (20:08)
[2019-12-11] MEDS: PANTOPRAZOLE 40 MG INJ IVP SCH (20:13)
[2019-12-11] MEDS ORDERED: CEFTRIAXONE 1 GM/NS 50 ML 1 GM/50 ML BAG IV SCH (21:00)
[2019-12-11] MEDS ORDERED: CEFTRIAXONE/SWI 1gm 1 GM/10 ML SYR IV SCH (21:00)
[2019-12-11] MEDS ORDERED: ALPRAZOLAM 1 MG TABLET PO ONE (22:21)
[2019-12-11] MEDS ORDERED: ROPINIROLE HCL 1 MG TAB PO ONE (22:23)
[2019-12-12] MEDS: ALBUTEROL 2.5 MG/3 ML NEB SOL NEB SCH ×3 (02:46→14:00)
[2019-12-12] MEDS: IPRATROPIUM BROM 0.5MG/2.5ML NEB SCH ×3 (02:46→14:00)
[2019-12-12 05:01] LABS: Absolute Lymphocytes (CBC) 0.9 K/uL (0.7-4.9); Basophils % 0.1 % (0-1.3); Hematocrit 33.9 % (36.0-45.0); Lymphocytes % 10.3 % (15.3-44.8); MPV 7.2 fL (7.6-11.3); RBC Red Blood Cell Count 4.69 M/uL (3.86-4.86)
[2019-12-12 05:09] LABS: Magnesium 2.3 mg/dL (1.8-2.4); Phosphorus 3.1 mg/dL (2.5-4.9)
[2019-12-12] MEDS: METHYLPREDNISOLONE 40 MG INJ IV SCH ×3 (05:24→17:56)
[2019-12-12 05:37] LABS: Anisocytosis 1+; Blood Morphology Comment NOTED (NOT SEEN); Hypochromasia 2+; Platelet Estimate ADEQ
[2019-12-12] MEDS ORDERED: ENOXAPARIN 40 MG/0.4 ML SQ SCH (09:00)
[2019-12-12 09:49] VITALS: O2SAT 94
[2019-12-12] MEDS: PANTOPRAZOLE 40 MG INJ IVP SCH (10:08)
[2019-12-12] MEDS: AZITHROMYCIN IV 500 MG in NA CHLORIDE 0.9% 250 ML IVPB SCH (10:08)
[2019-12-12 20:06] VITALS: BP 148/87; TEMP 97.9
[2019-12-12] MEDS ORDERED: CITALOPRAM 10 MG TABLET PO SCH (21:00)
[2019-12-12] MEDS ORDERED: ATORVASTATIN 10 MG TAB PO SCH (21:00)
[2019-12-12] MEDS ORDERED: ALPRAZOLAM 1 MG TABLET PO SCH (21:00)
[2019-12-12] MEDS ORDERED: ROPINIROLE HCL 1 MG TAB PO SCH (21:00)
[2019-12-12] MEDS ORDERED: HOME MED 1 EA UNK (Simvastatin [Simvastatin] 20 MG) PO SCH (21:00)
--- NOTE | 2019-12-13 02:03 | DS ---
Date of Discharge: 12/12/2019 Consultants: Dr. He with Pulmonology. Discharge Diagnoses: 1.Acute chronic obstructive pulmonary disease exacerbation. 2.Gastroesophageal reflux disease. 3.Anemia. 4.Obesity, body mass index of 34. 5.Generalized anxiety disorder. 6.Major depressive disorder on SSRI. 7.Mixed hyperlipidemia. 8.Hypothyroidism. Hospital Course: Patient is a 59-year-old female with past medical history of COPD, comes in with ortness of breath, wheezing, coughing for the past 3 days. Patient took Z-Glen without improvement in her symptoms. Patient was admitted to the hospital for further workup. Her white blood cell count was elevated at 14,000, now back to normal. She did not have any signs of sepsis. Blood cultures we re negative to date. Chest x-ray showed no acute intrathoracic process. CT dissection showed no acu te aortic findings. She does have gastric banding with distention of the esophagus with fluid proxim ally. Patient does report recurrent acid reflux due to her lap banding. Patient was started on prop hylactic antibiotics. Pulmonology was consulted. Her symptoms improved. She remained afebrile. Sh eder did not have any desaturations. Her O2 saturations were 95% with activity and on room air. Deirdre lamb was then cleared for discharge and sent home in a stable condition. Activity: As tolerated. Medications: As per medication reconciliation list. Followup: Follow up with primary care physician in 2 to 3 days follow up with scale assembly set up worker, Dr. Danny beasley in 2 weeks. Return to ER for worsening condition. Physical Examination: General: Awake, alert, oriented x3. Elderly female, obese. BMI 34. CV: S1, S2. Respiratory: Some minimal wheezing heard. No tachypnea. No use of accessory muscles. Gastrointestinal: Abdomen is soft, nontender, nondistended. Positive bowel sounds. Extremities: No clubbing, cyanosis, or edema. Neurologic: Nonfocal. SA/MODL Voice ID: [id number] Report ID: [id number]
[2019-12-13] MEDS ORDERED: AMLODIPINE 5 MG TAB PO SCH (09:00)
[2019-12-13] MEDS ORDERED: BUPROPION HCL XL 150 MG TAB PO SCH (09:00)
== END 2019-12-12 20:00 | disposition home or self-care (01) ==
LOC: ER 12:07 → ERHOLD 14:45 → 2ND 18:28
PROVIDERS: ADMIT Internal Medicine; ATTEND Family Medicine
DX: J44.1 Chronic obstructive pulmonary disease with (acute) exacerbation (principal); K21.9 Gastro-esophageal reflux disease without esophagitis; D72.829 Elevated white blood cell count, unspecified; D64.9 Anemia, unspecified; E78.2 Mixed hyperlipidemia; E03.9 Hypothyroidism, unspecified; F32.9 Major depressive disorder, single episode, unspecified; F41.1 Generalized anxiety disorder; K44.9 Diaphragmatic hernia without obstruction or gangrene; M19.90 Unspecified osteoarthritis, unspecified site; E66.9 Obesity, unspecified; Z68.34 Body mass index [BMI] 34.0-34.9, adult; Z98.84 Bariatric surgery status; Z79.52 Long term (current) use of systemic steroids; Z79.51 Long term (current) use of inhaled steroids; Z79.899 Other long term (current) drug therapy
CPT/HCPCS: 96365; 96361; 93005; 87040 ×2; 87070; 85025 ×2; 80048 ×2; 36415; 83735 ×2; 87205; 84100; 85610; 80076; 84484; 83690; 83880; 71275; 74175; 71045; 94760 ×2; 96375; 99285; Q9967; C9113 ×3; J0456; J1650; J2543; J0696; J7030 ×2; J2920 ×5; G0378 ×3